=== PATIENT | male | born 1985 | race African-American/Black ===

== ENCOUNTER 2016-12-18 17:21 | Emergency (ER) | payer SELFPAY ==
[~2016-12-18] VITALS: Ht 170.2 cm; Wt 111.4 kg
[2016-12-18 18:31] LABS: ADD MIUA? YES; BILIRUBIN NEGATIVE; BLOOD NEGATIVE; COLOR YELLOW ((YELLOW)); GLUCOSE (STRIP) NEGATIVE; KETONES 5; LEUKOCYTES MODERATE; NITRITE NEGATIVE; PROTEIN (STRIP) 30; SPECIFIC GRAVITY 1.033 (1.000-1.030)
[2016-12-18 19:01] LABS: BACTERIA NONE SEEN /HPF; EPITHELIAL CELLS NONE SEEN /HPF; MUCUS 1+ /LPF; UCUL ADDED? YES
[2016-12-18] MEDS ORDERED: BACTRIM,SEPT1 TABLET PO (19:11)
[2016-12-18 19:54] VITALS: BP 126/54
== END 2016-12-18 19:55 | disposition home or self-care (01) ==
LOC: EME 17:21
DX: N34.2 Other urethritis (principal); N30.90 Cystitis, unspecified without hematuria; Z20.2 Contact with and (suspected) exposure to infections with a predominantly sexual mode of transmission; J45.909 Unspecified asthma, uncomplicated; Z87.891 Personal history of nicotine dependence
CPT/HCPCS: 81003; 87077; 87086; 87185; 99281; 99284; J0696